=== PATIENT | male | born 1950 ===

== ENCOUNTER → 2017-04-29 | Emergency (ER) | payer OTHER ==
[~2017-04-29] VITALS: Ht 175.3 cm; Wt 83.5 kg
[~2017-04-29] MED LIST: COZAAR25 MG PO; VERAPAMIL ER240 MG PO
== END | disposition home or self-care (01) ==
LOC: ER 21:33
DX: L76.22 Postprocedural hemorrhage of skin and subcutaneous tissue following other procedure (principal); Y83.8 Other surgical procedures as the cause of abnormal reaction of the patient, or of later complication, without mention of misadventure at the time of the procedure

== ENCOUNTER 2021-10-05 04:44 | Emergency (ER) | payer OTHER ==
[~2021-10-05] VITALS: Ht 175.3 cm; Wt 73.9 kg
[2021-10-05] MEDS ORDERED: NAPROXEN500 MG PO (07:34)
[2021-10-05] MEDS ORDERED: AZITHROMYCIN500 MG PO (07:34)
== END 2021-10-05 07:41 | disposition home or self-care (01) ==
LOC: ER 04:44
DX: J02.9 Acute pharyngitis, unspecified (principal); R04.2 Hemoptysis; I10 Essential (primary) hypertension; Z20.822 Contact with and (suspected) exposure to COVID-19; F17.200 Nicotine dependence, unspecified, uncomplicated